=== PATIENT | male | born 1975 | race Caucasian/White ===

== ENCOUNTER → 2025-05-19 10:15 | Outpatient (BNVA) | payer SELFPAY | PROVIDERS: Visit Provider Family Medicine | DX: Z13.6 Encounter for screening for cardiovascular disorders (principal) | CPT/HCPCS: 80053; 80061; 83036; 84439; 84443; 85025 ==

== ENCOUNTER → 2025-06-01 09:31 | Outpatient (BNVA) | payer OTHER, SELFPAY | PROVIDERS: Visit Provider Orthopaedic Surgery | DX: M25.561 Pain in right knee (principal); M25.562 Pain in left knee; G89.29 Other chronic pain; M17.12 Unilateral primary osteoarthritis, left knee; M22.8X1 Other disorders of patella, right knee; M22.8X2 Other disorders of patella, left knee | CPT/HCPCS: 73560; 73565 ==